=== PATIENT | male | born 1980 | race Caucasian/White ===

== ENCOUNTER 2018-10-28 14:28 | Outpatient (RCR) | payer SELFPAY | END 2018-11-09 23:59 | LOC: NS 14:28 | DX: R69 Illness, unspecified (principal); Z71.3 Dietary counseling and surveillance | CPT/HCPCS: 97802 ==

== ENCOUNTER 2018-11-27 16:00 | Outpatient (RCR) | payer SELFPAY | END 2018-12-09 23:59 | LOC: NS 16:00 | DX: R69 Illness, unspecified (principal); Z71.3 Dietary counseling and surveillance | CPT/HCPCS: 97803 ==

== ENCOUNTER 2018-12-17 15:57 | Outpatient (RCR) | payer SELFPAY | END 2019-01-09 23:59 | LOC: NS 15:57 | DX: R69 Illness, unspecified (principal) | CPT/HCPCS: 97803 ==

== ENCOUNTER 2019-01-26 14:49 | Outpatient (RCR) | payer SELFPAY | END 2019-02-08 23:59 | LOC: NS 14:49 | DX: R69 Illness, unspecified (principal) | CPT/HCPCS: 97803 ==

== ENCOUNTER 2019-03-11 16:00 | Outpatient (RCR) | payer SELFPAY | END 2019-03-11 23:59 | LOC: NS 16:00 | DX: R69 Illness, unspecified (principal); Z71.3 Dietary counseling and surveillance | CPT/HCPCS: 97803 ==